=== PATIENT | male | born 1990 | race American Indian/Alaskan Native ===

== ENCOUNTER 2021-10-03 14:43 | Emergency (ER) | payer SELFPAY ==
[2021-10-03] MEDS ORDERED: SODIUM CHLORIDE 0.9% 1000 ML 1,000 ML IV ONE (15:57)
--- NOTE | 2021-10-03 16:00 | Emergency Department Report ---
ED General Adult HPI - General Chief complaint: Weakness Stated complaint: FEELING WEAK/LIGHTHEADED PUI?: Yes Time Seen by Provider: 10/03/21 15:53 Source: patient Mode of arrival: Ambulatory Limitations: No Limitations - History of Present Illness Initial comments: This is a 31-year-old male who denies any medical conditions and denies taking any medication came in today with concerns of generalized weakness that started today and also fainting like sensation that also started today. Patient also endorsed generalized body ache. Patient denies anybody sick around him. Patient denies any fever chills night sweats dizziness blurred vision ear pain tinnitus runny nose sore throat loss of taste or smell chest pain palpitation short of breath cough abdominal pain nausea vomiting diarrhea constipation dysuria new rash he will call intolerance. Severity scale (0 -10): 0 - Related Data Previous Rx's Medication Instructions Recorded Last Taken Type Ciprofloxacin HCl [Ciprofloxacin 500 mg PO Q12H #20 tab 04/02/15 Unknown Rx TAB] Allergies Allergy/AdvReac Type Severity Reaction Status Date / Time No Known Allergies Allergy Unverified 04/02/15 13:24 ED Review of Systems ROS: Stated complaint: FEELING WEAK/LIGHTHEADED Other details as noted in HPI Comment: All other systems reviewed and negative Constitutional: see HPI, weakness Eyes: as per HPI ENT: as per HPI Respiratory: no symptoms reported, see HPI Cardiovascular: as per HPI Endocrine: no symptoms reported, see HPI Gastrointestinal: as per HPI Genitourinary: as per HPI Musculoskeletal: as per HPI Skin: as per HPI Neurological: as per HPI Psychiatric: as per HPI Hematological/Lymphatic: as per HPI ED Past Medical Hx - Past Medical History Previous Medical History?: No - Surgical History Past Surgical History?: No - Social History Smoking Status: Current Every Day Smoker Substance Use Type: Alcohol - Medications Home Medications: Home Medications Medication Instructions Recorded Confirmed Last Taken Type Ciprofloxacin HCl [Ciprofloxacin 500 mg PO Q12H #20 tab 04/02/15 Unknown Rx TAB] ED Physical Exam - General Limitations: No Limitations General appearance: alert, in no apparent distress, other (APPEARS FATIGUED) - Head Head exam: Present: atraumatic, normocephalic, normal inspection - Eye Eye exam: Present: normal appearance, PERRL, EOMI Pupils: Present: normal accommodation - ENT ENT exam: Present: normal exam, mucous membranes moist - Neck Neck exam: Present: normal inspection, full ROM - Respiratory Respiratory exam: Present: normal lung sounds bilaterally - Cardiovascular Cardiovascular Exam: Present: regular rate, normal heart sounds - GI/Abdominal GI/Abdominal exam: Present: soft - Extremities Exam Extremities exam: Present: normal inspection, full ROM, normal capillary refill - Back Exam Back exam: Present: normal inspection, full ROM - Neurological Exam Neurological exam: Present: alert, oriented X3, CN II-XII intact - Psychiatric Psychiatric exam: Present: normal affect, normal mood - Skin Skin exam: Present: normal color ED Course Vital Signs 10/03/21 10/03/21 10/03/21 15:29 15:30 15:33 Temperature Pulse Rate 75 85 82 Respiratory 22 17 20 Rate Blood Pressure 112/74 112/74 Blood Pressure [Left] O2 Sat by Pulse 98 98 Oximetry 10/03/21 10/03/21 10/03/21 15:37 15:46 16:00 Temperature 97.5 F L Pulse Rate 84 76 76 Respiratory 20 20 25 H Rate Blood Pressure 105/69 105/69 Blood Pressure 112/74 [Left] O2 Sat by Pulse 99 98 Oximetry 10/03/21 10/03/21 16:16 16:30 Temperature Pulse Rate 79 74 Respiratory 25 H 18 Rate Blood Pressure 111/68 111/68 Blood Pressure [Left] O2 Sat by Pulse 97 98 Oximetry ED Medical Decision Making - Lab Data Result diagrams: 10/03/21 16:02 10/03/21 16:02 - Medical Decision Making Chest x-ray unremarkable also his lab as well. Patient referred to make follow- up appointment with primary care provider to be seen within 3 days for further outpatient evaluation. Critical care attestation.: If time is entered above; I have spent that time in minutes in the direct care of this critically ill patient, excluding procedure time. ED Disposition Clinical Impression: Generalized weakness, Systemic viral illness Disposition: 01 HOME / SELF CARE / HOMELESS Is pt being admited?: No Does the pt Need Aspirin: No Condition: Stable Time of Disposition: 17:56
[2021-10-03 16:43] VITALS: BP 111/68
[2021-10-03 17:08] LABS: Hematocrit 48.2 % (35.5-45.6); Hemoglobin 16.3 gm/dl (11.8-15.2); Mean Corpuscular HGB Conc 34 % (32-34); Mean Corpuscular Volume 88 fl (84-94); Platelet Count 128 K/mm3 (140-440); Red Blood Count 5.47 M/mm3 (3.65-5.03); Red Cell Distribution Width 15.3 % (13.2-15.2)
[2021-10-03 17:25] LABS: Alanine Aminotransferase 43 units/L (7-56); Albumin 4.4 g/dL (3.9-5); BUN/Creatinine Ratio 6; Blood Urea Nitrogen 7 mg/dL (9-20); Hemolysis Index 15
--- NOTE | 2021-10-03 17:41 | XRay Report ---
CHEST 1 VIEW 10/03/2021 4:28 PM INDICATION / CLINICAL INFORMATION: fatigue/cough. COMPARISON: None available. FINDINGS: SUPPORT DEVICES: None. HEART / MEDIASTINUM: No significant abnormality. LUNGS / PLEURA: Mild interstitial prominence within the lung bases No pneumothorax. ADDITIONAL FINDINGS: No significant additional findings. IMPRESSION: Mild increased interstitial prominence in the lung bases Signer Name: Singh Nguyễn MD Signed: 10/03/2021 5:34 PM Workstation Name: [id number]
[2021-10-03 19:42] LABS: Eosinophils % (Manual) 0 % (0.0-4.3); Platelet Estimate Consistent w Auto; RBC Morphology Normal; Total Cells Counted 100
== END 2021-10-03 18:23 | disposition home or self-care (01) ==
LOC: ED 14:43
DX: R53.1 Weakness (principal); B34.9 Viral infection, unspecified; F17.290 Nicotine dependence, other tobacco product, uncomplicated
CPT/HCPCS: 36415; 71045; 80053; 82962; 83735; 85007; 85025; 96360; 99284; J7030